=== PATIENT | male | born 1965 | race Caucasian/White ===

== ENCOUNTER → 2022-10-16 10:29 | Outpatient (BNVA) | payer MEDICAID, SELFPAY | PROVIDERS: Visit Provider Internal Medicine Pulmonary Disease | DX: R05.3 Chronic cough (principal); G47.19 Other hypersomnia; R06.02 Shortness of breath | CPT/HCPCS: 36415; 71046; 80053; 82785; 85025; 86003 ==

== ENCOUNTER 2022-11-09 08:42 | Outpatient (CLI) | payer MEDICAID, SELFPAY | END 2022-11-09 08:43 | disposition home or self-care (01) | LOC: RT 08:45 | PROVIDERS: PCP Family Medicine; Visit Provider Internal Medicine Pulmonary Disease | DX: R06.02 Shortness of breath (principal) | CPT/HCPCS: 94010; 94618; 94726; 94729 ==

== ENCOUNTER 2023-08-06 13:00 | Outpatient (CLI) | payer MEDICAID, SELFPAY | END 2023-08-06 13:01 | disposition home or self-care (01) | LOC: SLEEP 08-07 10:58 | PROVIDERS: PCP Family Medicine; Visit Provider Internal Medicine Pulmonary Disease | DX: G47.33 Obstructive sleep apnea (adult) (pediatric) (principal) | CPT/HCPCS: G0399 ==